=== PATIENT | female | born 1935 | race Caucasian/White ===

== ENCOUNTER 2016-11-17 22:19 | Inpatient (IN) ==
[2016-11-18] MEDS ORDERED: Ondansetron 4 MG/2 ML VIAL IVP PRN (05:00)
[2016-11-18] MEDS ORDERED: Albuterol 2.5 MG/3 ML NEBULIZER IH PRN (05:43)
[2016-11-18] MEDS ORDERED: Vancomycin 1,000 MG in D5% in Water 250 ML IVPB STA (05:43)
[2016-11-18] MEDS ORDERED: Acetaminophen 325 MG TABLET PO PRN (05:45)
[2016-11-18] MEDS ORDERED: Pantoprazole 40 MG VIAL IVP STA (05:45)
[2016-11-18] MEDS ORDERED: MOM Conc 10 ML UD.LIQ PO PRN (05:45)
[2016-11-18] MEDS ORDERED: Gabapentin 100 MG CAPSULE PO PRN (05:45)
[2016-11-18] MEDS ORDERED: Naloxone 0.4 MG/ML INJ IVP PRN (05:45)
--- NOTE | 2016-11-18 05:50 | Internal Med History&Physical ---
Date of Encounter: 11/18/16 Time of Encounter: 05:50 Assessment and Plan (1) Pneumonia Current visit: Yes Status: Acute Suspect possibility of aspiration considering history of throat surgeries. We will obtain swallowing evaluation. Place patient on vancomycin and Zosyn. Cultures pending. Qualifiers: Pneumonia type: aspiration pneumonia Aspiration pneumonia type: unspecified Lung location: unspecified part of lung Qualified Code(s): J69.0 - Pneumonitis due to inhalation of food and vomit (2) COPD exacerbation Current visit: No Status: Acute IV steroid med nebs Mucinex as started (3) Hypokalemia Current visit: Yes Status: Acute Follow-up potassium (4) Dyslipidemia Current visit: Yes Status: Acute Resume home meds Internal Medicine - H&P: HPI Chief complaint: Cough shortness of breath Admitted From: Home Plans for Post Hospital Care: Home History of present illness: Ms. Kaiser is a 80 year old female past medical history significant for dyslipidemia, thyroid surgery, multiple throat surgeries afterwards and multiple back surgeries. She was recently admitted in [facility] where she was treated for pneumonia. She was discharged on cephalosporin and Zithromax. Soon after discharge patient developed symptoms of cough and dyspnea. Today's chest x-ray showed multifocal pneumonia. Patient refused to be admitted in [facility] therefore transferred to our facility. As I saw her she seems reasonably stable and comfortable. She denies any chest pain palpitations syncope or dizziness fever chills abdominal pain nausea vomiting diarrhea dysuria urgency frequency or hematuria metaphyseal hematemesis melena or any other symptoms otherwise. Past Med Surg Social Fam HX - Past Medical History Medical history: arthritis, COPD, coronary artery disease, myocardial infarction , thyroid disease Psychiatric history: depression - Past Surgical History Surgical History: cataract, orthopedic, other, MORENITA/BSO, other - Social History Smoking Status: Never smoker Smokeless Tobacco Status: No Alcohol use: none Drug use: none - Family History Father Living Status: Mother Living Status: Internal Medicine - H&P: Meds Atorvastatin [Lipitor] 40 mg PO HS 11/14/16 [History] Gabapentin [Neurontin] 100 mg PO TID PRN 11/14/16 [History] Oxycodone HCl/Acetaminophen [Percocet 7.5-325 mg Tablet] 1 each PO Q6-8H PRN 05/01 [History] Pantoprazole Sodium [Protonix] 40 mg PO DAILY 11/14/16 [History] Quetiapine Fumarate [Seroquel] 100 mg PO HS 11/14/16 [History] Azithromycin [Zithromax] 250 mg PO DAILY #3 tablet 11/16/16 [Rx] Cefuroxime PO [Ceftin] 500 mg PO Q12HR #6 tablet 11/16/16 [Rx] Lactobacillus [Culturelle] 1 each PO BID #6 cap.sprink 11/16/16 [Rx] 3 Allergy/AdvReac Type Severity Reaction Status Date / Time codeine Allergy Hives Verified 11/23/14 11:00 All Systems PM: A 10-system review of systems was performed and is negative for pertinent findings except as documented above in the HPI. - Constitutional Constitutional: no chills, no fever(s), no night sweats - EENT Eyes: no change in vision, no discharge, no pain, no photophobia Ears: no ear discharge, no ear pain, no tinnitus Nose, mouth and throat: no dysphagia, no nasal discharge, no neck pain, no sore throat - Cardiovascular Cardiovascular ROS IM: no chest pain, no diaphoresis, no dyspnea, no lightheadedness, no palpitations, no syncope - Respiratory Respiratory: no cough, no dyspnea, no wheezing, no excessive phlegm production - Gastrointestinal Gastrointestinal: no abdominal pain, no diarrhea, no hematemesis, no hematochezia, no melena, no nausea, no vomiting - Genitourinary Genitourinary: no change in urinary stream, no dysuria, no flank pain, no hematuria - Musculoskeletal Musculoskeletal ROS IM: no numbness, no tingling - Integumentary Integumentary IM: no rash, no unusual bruising - Neurological Neurological ROS: no confusion, no convulsions, no focal weakness, no numbness, no tingling, no tremor(s) - Hematologic/Lymphatic Hematologic/Lymphatic: no easy bruising - Constitutional Vitals: Temp Pulse Resp BP Pulse Ox 98.4 F 66 16 108/67 97 11/18/16 02:56 11/18/16 02:56 11/18/16 02:56 11/18/16 02:56 11/18/16 02:56 - Head Head exam: Present: atraumatic, normocephalic - Eye Eye exam: Present: PERRL, conjuntiva pink, sclera anicteric Pupils: Present: PERRL - Neck Neck exam general surgery: Present: supple, trachea midline. Absent: lymphadenopathy - Respiratory Respiratory exam: Present: decreased breath sounds, wheezes. Absent: accessory muscle use, rales, rhonchi - Cardiovascular Cardiovascular exam: Present: RRR, +S1, +S2. Absent: diastolic murmur, gallop, rubs, systolic murmur - GI/Abdominal GI/Abdominal exam: Present: normal bowel sounds, soft, no peritoneal signs. Absent: distended, tenderness - Extremities Exam Extremities exam: Present: warm, radial pulses palpable and symmetrical. Absent : calf tenderness, cyanotic, pedal edema - Neurological Exam Neurological exam: Present: CN II-XII intact, oriented X3, no focal deficits. Absent: pronater drift, facial droop, speech deficit - Skin Skin exam: Present: dry, intact
[2016-11-18] MEDS ORDERED: Piperacillin/Tazobactam 3.375 GM in D5% in Water (Mini-Bag+) 100 ML IVPB STA (05:59)
[2016-11-18] MEDS: Vancomycin 1,250 MG in D5% in Water 250 ML IVPB SCH (06:33)
[2016-11-18] MEDS: *HR* Enoxaparin 40 MG/0.4 ML SYRINGE SQ SCH (06:33)
[2016-11-18] MEDS: 0.9 % Sodium Chloride 1,000 ML IVC SCH ×2 (06:34→20:50)
[2016-11-18] MEDS: Ipratropium/Albuterol Neb 3 ML IH SCH ×4 (07:32→23:12)
[2016-11-18] MEDS: methylPREDNISolone 125 MG/2 ML VIAL IVP SCH ×3 (09:10→23:29)
[2016-11-18] MEDS: Lactobacillus 1 EACH CAP.SPRINK PO SCH ×2 (09:11→20:41)
--- NOTE | 2016-11-18 14:02 | Internal Med Progress Note ---
Date of Encounter: 11/18/16 Time of Encounter: 10:30 - Assessment and plan (1) Multifocal pneumonia Current Visit: Yes Status: Acute Assessment and plan: Patient had been started on Invanz at home since Wednesday. Patient had been seen on 11/14/16 for cough and fever, seen again on 11/17/16 after she failed outpatient therapy initially with azithromycin and a cephalosporin. She is currently on vancomycin and Zosyn. Mild tachycardia and mild hypotension noted this morning. No lactic acidosis. Patient is perfusing well. Blood cultures ordered as well. Heart rate has trended down, blood pressure remains stable. Continue IV fluids and close monitoring. No indication of SIRS or sepsis at this time. No leukocytosis. Supplemental oxygenation as needed. Unknown causative factor at this time. Sputum culture is pending however the patient has not had a productive cough yet-Will obtain once she is able to produce sputum. EXAMINATION: CT OF THE CHEST WITHOUT CONTRAST 11/17/2016 5:22 pm HISTORY: ORDERING SYSTEM PROVIDED HISTORY: failed out pt pneumonia CT/CT chest wo con IMPRESSION: 1. Patchy consolidation within the lower lobes bilaterally, somewhat greater on the left, with small bilateral pleural effusions. Mild multifocal pneumonia with parapneumonic effusions is considered most likely. Correlate with any clinical evidence of superimposed pulmonary edema. 2. The examination is mild to moderately degraded by motion artifact. D/ / Higinio Guerrier MD / Higinio Guerrier MD Interpreting Provider: Higinio Guerrier MD (2) COPD exacerbation Current Visit: No Status: Acute Assessment and plan: Examination more consistent with multifocal pneumonia although her COPD could be playing a factor. Continue bronchodilators, steroids, and mucolytics. (3) Acute respiratory failure Current Visit: Yes Status: Acute Assessment and plan: 2L per nasal cannula continuously. It does no tappear as if she is on oxygen at home. (4) History of throat surgery Current Visit: Yes Status: Chronic Assessment and plan: Patient with history of several throat surgeries. Speech therapy on board, recommendation is for a modified barium swallow. We will continue to follow speech therapy recommendations. Patient denies any choking episodes. (5) Chronic lower back pain Current Visit: No Status: Chronic Assessment and plan: Patient denies pain at this time. Qualifiers: Back pain laterality: midline Sciatica presence: with sciatica Sciatica laterality: sciatica of left side Qualified Code(s): M54.42 - Lumbago with sciatica, left side; G89.29 - Other chronic pain - Subjective Interval history: Patient seen and examined. On examination, patient initially asleep in high Stevens's. She awakened easily to voice and stated that she was nauseated. She denied vomiting. She denied pain at this time but felt a smothering feeling in her chest. - Constitutional Vitals: Temp Pulse Resp BP Pulse Ox 98.1 F 85 15 97/63 92 11/18/16 11:17 11/18/16 11:17 11/18/16 11:17 11/18/16 11:17 11/18/16 11:17 General appearance: Present: mild distress, A&O X 3, pleasant, answers questions appropriately - Head Head exam: Present: atraumatic, normocephalic - Eye Eye exam: Present: PERRL, conjuntiva pink, sclera anicteric Pupils: Present: PERRL - Neck Neck exam general surgery: Present: supple, trachea midline. Absent: lymphadenopathy - Respiratory Respiratory exam: Present: decreased breath sounds, rhonchi (few, scattered bilateral LL). Absent: accessory muscle use, rales, respiratory distress, wheezes - Cardiovascular Cardiovascular exam: Present: RRR, +S1, +S2. Absent: diastolic murmur, gallop, rubs, systolic murmur - GI/Abdominal GI/Abdominal exam: Present: normal bowel sounds, soft, no peritoneal signs. Absent: distended, tenderness - Extremities Exam Extremities exam: Present: warm, radial pulses palpable and symmetrical. Absent : calf tenderness, cyanotic, pedal edema - Neurological Exam Neurological exam: Present: alert, CN II-XII intact, oriented X3, no focal deficits, strengths equal and symetr throughout. Absent: pronater drift, facial droop, speech deficit - Skin Skin exam: Present: dry, intact, pallor, warm Consult Discharge Plan - Plan Referrals: Hortencia Bagley, [employer] [Primary Care Provider] -
[2016-11-18] MEDS: *HR* OxyCODONE Immed Rel 5 MG TABLET PO PRN (16:34)
[2016-11-18] MEDS: *HR* OxyCODONE/APAP 7.5/325 TABLET PO PRN (20:47)
[2016-11-18] MEDS: Melatonin 3 MG TABLET PO PRN (23:29)
[2016-11-19] MEDS: Ipratropium/Albuterol Neb 3 ML IH SCH ×4 (04:01→22:59)
[2016-11-19 05:06] LABS: Basophils % 0.1 %; Hematocrit 30.6 % (35.3-44.9); Hemoglobin 9.9 g/dL (11.5-15.4); Immature Granulocytes % 1.1 % (0-4); Lymphocytes # 0.5 K/mcL (0.6-4.6); Lymphocytes % 5.9 %; Mean Corpuscular HGB Conc 32.4 g/dL (31.6-35.5); Mean Corpuscular Hemoglobin 32.2 pg (28.0-33.3); Mean Corpuscular Volume 99.7 fL (83.0-100.0); Mean Platelet Volume 10.3 fL (9.4-12.4); Monocytes # 0.2 K/mcL (0.0-1.3); Neutrophils # 7.3 K/mcL (1.6-8.9); Platelet Count 213 K/mcL (140-400); Red Blood Count 3.07 M/mcL (3.82-4.97); Red Cell Distribution Width 14.5 % (11.5-14.5); Segmented Neutrophils % 90.9 %
[2016-11-19 05:21] LABS: Alanine Aminotransferase 13 Units/L (0-55); Albumin 2.3 g/dL (3.5-5.0); Albumin/Globulin Ratio 0.8 (1.1-2.2); Alkaline Phosphatase 90 Units/L (38-126); Aspartate Amino Transferase 13 Units/L (5-34); BUN/Creatinine Ratio 14 (6-26); Blood Urea Nitrogen 15 mg/dL (7-20); Calcium 7.3 mg/dL (8.6-10.8); Carbon Dioxide 22 mEq/L (19-29); Chloride 109 mEq/L (98-109); Glucose 179 mg/dL (70-99); Osmolality,Calculated 293 (280-300); Potassium 3.8 mEq/L (3.5-4.5); Sodium 139 mEq/L (136-145); Total Protein 5.3 g/dL (6.0-8.3); eGFR For African Americans 59 (> 60); eGFR For Non-African Americans 49 (> 60)
[2016-11-19 05:27] LABS: Bilirubin,Total < 0.3 mg/dL (0.2-1.2)
[2016-11-19 05:35] LABS: Triiodothyronine (T3) Total 0.49 ng/mL (0.58-1.59)
[2016-11-19] MEDS: *HR* Enoxaparin 40 MG/0.4 ML SYRINGE SQ SCH (06:26)
[2016-11-19] MEDS: *HR* OxyCODONE/APAP 7.5/325 TABLET PO PRN ×2 (06:26→15:01)
[2016-11-19] MEDS: Vancomycin 1,250 MG in D5% in Water 250 ML IVPB SCH (06:26)
[2016-11-19] MEDS: 0.9 % Sodium Chloride 1,000 ML IVC SCH ×3 (06:36→16:12)
[2016-11-19] MEDS: Piperacillin/Tazobactam 3.375 GM in D5% in Water (Mini-Bag+) 100 ML IVPB SCH ×2 (08:11→15:07)
[2016-11-19] MEDS: methylPREDNISolone 125 MG/2 ML VIAL IVP SCH ×2 (08:11→15:02)
[2016-11-19] MEDS: Lactobacillus 1 EACH CAP.SPRINK PO SCH ×2 (08:11→21:01)
--- NOTE | 2016-11-19 15:28 | Internal Med Progress Note ---
Date of Encounter: 11/19/16 Time of Encounter: 10:30 - Assessment and plan (1) Multifocal pneumonia Current Visit: Yes Status: Acute Assessment and plan: Patient had been started on Invanz at home since Wednesday. Patient had been seen on 11/14/16 for cough and fever, seen again on 11/17/16 after she failed outpatient therapy initially with azithromycin and a cephalosporin. She is currently on vancomycin and Zosyn and clinically improving daily. Mild tachycardia has resolved; she continues with mild hypotension. No lactic acidosis. Patient is perfusing well. Blood cultures ordered as well yesterday and are pending. Continue IV fluids and close monitoring. No indication of SIRS or sepsis at this time. No leukocytosis. Supplemental oxygenation as needed- wean as tolerated- not on oxygen at home. Unknown bacteria causative factor at this time. Sputum culture is pending however the patient has not had a productive cough yet-Will obtain once she is able to produce sputum. Continue with broad spectrum coverage. EXAMINATION: CT OF THE CHEST WITHOUT CONTRAST 11/17/2016 5:22 pm HISTORY: ORDERING SYSTEM PROVIDED HISTORY: failed out pt pneumonia CT/CT chest wo con IMPRESSION: 1. Patchy consolidation within the lower lobes bilaterally, somewhat greater on the left, with small bilateral pleural effusions. Mild multifocal pneumonia with parapneumonic effusions is considered most likely. Correlate with any clinical evidence of superimposed pulmonary edema. 2. The examination is mild to moderately degraded by motion artifact. D/ / Higinio Guerrier MD / Higinio Guerrier MD Interpreting Provider: Higinio Guerrier MD (2) COPD exacerbation Current Visit: No Status: Acute Assessment and plan: Examination more consistent with multifocal pneumonia although her COPD could be playing a factor. Continue bronchodilators, steroids, and mucolytics. (3) Acute respiratory failure Current Visit: Yes Status: Acute Assessment and plan: 2L per nasal cannula continuously. She is not on oxygen at home. Anticipate weaning prior to discharge. Wean oxygen as she tolerates and as she improves clinically. (4) History of throat surgery Current Visit: Yes Status: Chronic Assessment and plan: Patient with history of several throat surgeries. Speech therapy was on board and recommended a modified barium swallow which is unremarkable. No speech therapy recommended. (5) Chronic lower back pain Current Visit: No Status: Chronic Assessment and plan: Patient denies pain at this time. Qualifiers: Back pain laterality: midline Sciatica presence: with sciatica Sciatica laterality: sciatica of left side Qualified Code(s): M54.42 - Lumbago with sciatica, left side; G89.29 - Other chronic pain - Subjective Interval history: Patient seen and examined. On examination, patient initially asleep in high Stevens's. She awakened easily to voice and stated that she feels better today. She states that the smothering sensation she had yesterday in her chest has gotten better. She also states her nausea has gotten better and states she started to eat a little bit more. She is still endorsing shortness of breath above her norm. - Constitutional Vitals: Temp Pulse Resp BP Pulse Ox 98.3 F 75 14 104/61 97 11/19/16 15:00 11/19/16 15:00 11/19/16 15:00 11/19/16 15:00 11/19/16 15:00 General appearance: Present: mild distress, A&O X 3, pleasant, answers questions appropriately - Head Head exam: Present: atraumatic, normocephalic - Eye Eye exam: Present: PERRL, conjuntiva pink, sclera anicteric Pupils: Present: PERRL - Neck Neck exam general surgery: Present: supple, trachea midline. Absent: lymphadenopathy - Respiratory Respiratory exam: Present: accessory muscle use, decreased breath sounds, respiratory distress (Mild). Absent: rales, rhonchi, wheezes - Cardiovascular Cardiovascular exam: Present: RRR, +S1, +S2. Absent: diastolic murmur, gallop, rubs, systolic murmur - GI/Abdominal GI/Abdominal exam: Present: normal bowel sounds, soft, no peritoneal signs. Absent: distended, tenderness - Extremities Exam Extremities exam: Present: warm, radial pulses palpable and symmetrical. Absent : calf tenderness, cyanotic, pedal edema - Neurological Exam Neurological exam: Present: alert, CN II-XII intact, oriented X3, no focal deficits, strengths equal and symetr throughout. Absent: pronater drift, facial droop, speech deficit - Skin Skin exam: Present: dry, intact, pallor, warm Internal Medicine: Result - Labs CBC & Chem 7: 11/19/16 03:58 11/19/16 03:58 Labs: Short CBC 11/19/16 Range/Units 03:58 WBC 8.1 (4.3-11.1) K/mcL Hgb 9.9 L D (11.5-15.4) g/dL Hct 30.6 L (35.3-44.9) % Plt Count 213 (140-400) K/mcL Neutrophils # 7.3 (1.6-8.9) K/mcL BMP 11/19/16 03:58 Sodium 139 Potassium 3.8 Chloride 109 Carbon Dioxide 22 BUN 15 Creatinine 1.09 Glucose 179 H Calcium 7.3 L D Liver Function 11/19/16 Range/Units 03:58 Total Bilirubin < 0.3 (0.2-1.2) mg/dL AST 13 (5-34) Units/L ALT 13 (0-55) Units/L Alkaline Phosphatase 90 (38-126) Units/L Albumin 2.3 L (3.5-5.0) g/dL Consult Discharge Plan - Plan Referrals: Hortencia Bagley, TAMMY [Primary Care Provider] -
[2016-11-19] MEDS: *HR* OxyCODONE Immed Rel 5 MG TABLET PO PRN (20:02)
[2016-11-19] MEDS: Melatonin 3 MG TABLET PO PRN (21:04)
[2016-11-20] MEDS: methylPREDNISolone 125 MG/2 ML VIAL IVP SCH ×4 (00:33→23:54)
[2016-11-20] MEDS: Piperacillin/Tazobactam 3.375 GM in D5% in Water (Mini-Bag+) 100 ML IVPB SCH ×4 (00:33→23:51)
[2016-11-20] MEDS: *HR* OxyCODONE/APAP 7.5/325 TABLET PO PRN ×3 (00:39→19:26)
[2016-11-20] MEDS: Ipratropium/Albuterol Neb 3 ML IH SCH ×4 (04:18→20:43)
[2016-11-20 04:47] LABS: Basophils % 0.1 %; Hemoglobin 9.9 g/dL (11.5-15.4); Immature Granulocytes % 1.4 % (0-4); Lymphocytes # 0.7 K/mcL (0.6-4.6); Lymphocytes % 5.3 %; Mean Corpuscular Hemoglobin 33.3 pg (28.0-33.3); Mean Platelet Volume 10.1 fL (9.4-12.4); Monocytes # 0.3 K/mcL (0.0-1.3); Monocytes % 2.4 %; Platelet Count 197 K/mcL (140-400); Red Blood Count 2.97 M/mcL (3.82-4.97); Red Cell Distribution Width 14.7 % (11.5-14.5); Segmented Neutrophils % 90.8 %
[2016-11-20 04:56] LABS: Neutrophils # 11.1 K/mcL (1.6-8.9)
[2016-11-20 04:59] LABS: Calcium 7.4 mg/dL (8.6-10.8); Potassium 3.8 mEq/L (3.5-4.5)
[2016-11-20] MEDS: *HR* Enoxaparin 40 MG/0.4 ML SYRINGE SQ SCH (06:09)
[2016-11-20] MEDS: Vancomycin 1,250 MG in D5% in Water 250 ML IVPB SCH (06:09)
[2016-11-20] MEDS: Lactobacillus 1 EACH CAP.SPRINK PO SCH ×2 (07:46→23:53)
[2016-11-20] MEDS: 0.9 % Sodium Chloride 1,000 ML IVC SCH (07:54)
--- NOTE | 2016-11-20 10:28 | Internal Med Progress Note ---
Date of Encounter: 11/20/16 Time of Encounter: 09:15 - Assessment and plan (1) Multifocal pneumonia Current Visit: Yes Status: Acute Assessment and plan: Patient had been started on Invanz at home since Wednesday. Patient had been seen on 11/14/16 for cough and fever, seen again on 11/17/16 after she failed outpatient therapy initially with azithromycin and a cephalosporin. She is currently on vancomycin and Zosyn and clinically improving daily. She was weaned off oxygen this am for a trial to see if she will need oxygen upon discharge. Patient stating she felt very weak, and stated that she was not ready to go home. She stated that her chest was tight, and stated that she was worried because she has been "discharged too early" in the past. We will monitor her today and see how she does without the supplemental oxygen. OT and PT consultations have been placed given that she lives alone. She states that she has a walker but never uses it. No recent falls. Regarding her chest tightness, examination mostly consistent with anxiety however she does have diffuse expiratory wheezing, will increase her DuoNeb every 4 hours. She is on high-dose steroids and appropriate antibiotic therapy. Dry, harsh hacking cough noted, we will add cough medicine. She is allergic to codeine- tessalon pearles ordered. Vital signs remain stable- trialling on room air. Blood cultures negative. Nonproductive cough so sputum culture was not obtained. Mild leukocytosis likely secondary to high-dose steroids. EXAMINATION: CT OF THE CHEST WITHOUT CONTRAST 11/17/2016 5:22 pm HISTORY: ORDERING SYSTEM PROVIDED HISTORY: failed out pt pneumonia CT/CT chest wo con IMPRESSION: 1. Patchy consolidation within the lower lobes bilaterally, somewhat greater on the left, with small bilateral pleural effusions. Mild multifocal pneumonia with parapneumonic effusions is considered most likely. Correlate with any clinical evidence of superimposed pulmonary edema. 2. The examination is mild to moderately degraded by motion artifact. D/ / Higinio Guerrier MD / Higinio Guerrier MD Interpreting Provider: Higinio Guerrier MD (2) COPD exacerbation Current Visit: No Status: Acute Assessment and plan: Examination more consistent with multifocal pneumonia although her COPD could be playing a factor. Continue bronchodilators, steroids, and mucolytics. (3) Acute respiratory failure Current Visit: Yes Status: Acute Assessment and plan: Weaned to room air this morning, will trend. She is not on oxygen at home. (4) History of throat surgery Current Visit: Yes Status: Chronic Assessment and plan: Patient with history of several throat surgeries. Speech therapy was on board and recommended a modified barium swallow which is unremarkable. No speech therapy recommended. (5) Chronic lower back pain Current Visit: No Status: Chronic Assessment and plan: Patient denies pain at this time. Qualifiers: Back pain laterality: midline Sciatica presence: with sciatica Sciatica laterality: sciatica of left side Qualified Code(s): M54.42 - Lumbago with sciatica, left side; G89.29 - Other chronic pain - Subjective Interval history: Patient seen and examined. On examination, patient alert and sitting upright in bed. Patient stating her chest feels tight today. She is also endorsing generalized weakness. She states she has a dry, hacking cough. She states she is not ready to go home today; she states that she has been discharged too early in the past. - Constitutional Vitals: Temp Pulse Resp BP Pulse Ox 98.0 F 98 16 118/65 95 11/20/16 07:31 11/20/16 07:31 11/20/16 07:31 11/20/16 07:31 11/20/16 08:13 General appearance: Present: mild distress, A&O X 3, pleasant, answers questions appropriately - Head Head exam: Present: atraumatic, normocephalic - Eye Eye exam: Present: PERRL, conjuntiva pink, sclera anicteric Pupils: Present: PERRL - Neck Neck exam general surgery: Present: supple, trachea midline. Absent: lymphadenopathy - Respiratory Respiratory exam: Present: decreased breath sounds, prolonged expiratory phase, respiratory distress (mild), wheezes. Absent: accessory muscle use, rales, rhonchi - Cardiovascular Cardiovascular exam: Present: RRR, +S1, +S2. Absent: diastolic murmur, gallop, rubs, systolic murmur - GI/Abdominal GI/Abdominal exam: Present: normal bowel sounds, soft, no peritoneal signs. Absent: distended, tenderness - Extremities Exam Extremities exam: Present: warm, radial pulses palpable and symmetrical. Absent : calf tenderness, cyanotic, pedal edema - Neurological Exam Neurological exam: Present: alert, CN II-XII intact, oriented X3, no focal deficits, strengths equal and symetr throughout. Absent: pronater drift, facial droop, speech deficit - Psychiatric Psychiatric exam: Present: anxious - Expanded Psychiatric Exam Focused psych exam: Present: restlessness - Skin Skin exam: Present: dry, intact, pallor, warm Internal Medicine: Result - Labs CBC & Chem 7: 11/20/16 04:38 11/20/16 04:38 Labs: Short CBC 11/20/16 Range/Units 04:38 WBC 12.2 H D (4.3-11.1) K/mcL Hgb 9.9 L (11.5-15.4) g/dL Hct 30.0 L (35.3-44.9) % Plt Count 197 (140-400) K/mcL Neutrophils # 11.1 H (1.6-8.9) K/mcL BMP 11/20/16 04:38 Sodium 140 Potassium 3.8 Chloride 111 H Carbon Dioxide 20 BUN 16 Creatinine 1.13 H Glucose 159 H Calcium 7.4 L Consult Discharge Plan - Plan Referrals: Hortencia Bagley CNP [Primary Care Provider] -
[2016-11-20] MEDS: Benzonatate 100 MG CAPSULE PO SCH ×3 (11:09→21:14)
[2016-11-20] MEDS ORDERED: Aminoglycoside Consult 1 EACH MC ONE (14:38)
[2016-11-21] MEDS: Ipratropium/Albuterol Neb 3 ML IH SCH ×7 (00:17→23:05)
[2016-11-21] MEDS: *HR* OxyCODONE/APAP 7.5/325 TABLET PO PRN ×3 (01:30→21:35)
[2016-11-21] MEDS: methylPREDNISolone 125 MG/2 ML VIAL IVP SCH ×3 (01:32→17:20)
[2016-11-21] MEDS: 0.9 % Sodium Chloride 1,000 ML IVC SCH (04:47)
[2016-11-21] MEDS: *HR* Enoxaparin 40 MG/0.4 ML SYRINGE SQ SCH (05:40)
[2016-11-21] MEDS: Vancomycin 1,250 MG in D5% in Water 250 ML IVPB SCH (05:41)
[2016-11-21 08:32] LABS: BUN/Creatinine Ratio 15 (6-26); Blood Urea Nitrogen 15 mg/dL (7-20); Calcium 7.6 mg/dL (8.6-10.8); Carbon Dioxide 22 mEq/L (19-29); Chloride 110 mEq/L (98-109); Glucose 149 mg/dL (70-99); Osmolality,Calculated 294 (280-300); Potassium 3.6 mEq/L (3.5-4.5); Sodium 140 mEq/L (136-145); eGFR For African Americans > 60 (> 60); eGFR For Non-African Americans 52 (> 60)
[2016-11-21] MEDS: Piperacillin/Tazobactam 3.375 GM in D5% in Water (Mini-Bag+) 100 ML IVPB SCH (08:51)
[2016-11-21] MEDS: Benzonatate 100 MG CAPSULE PO SCH ×3 (08:52→20:11)
[2016-11-21] MEDS: Lactobacillus 1 EACH CAP.SPRINK PO SCH ×2 (08:52→20:10)
[2016-11-21] MEDS ORDERED: Furosemide 20 MG/2 ML VIAL IVP ONE (11:11)
--- NOTE | 2016-11-21 11:14 | Internal Med Progress Note ---
Date of Encounter: 11/21/16 Time of Encounter: 09:30 - Assessment and plan (1) Multifocal pneumonia Current Visit: Yes Status: Acute Assessment and plan: Patient failed outpatient therapy with Azithromycin, Cefuroxime. Has been treated here with vancomycin and Zosyn. She was weaned to room air yesterday and was appropriate for discharge however she had what appeared to be consistent with a panic attack and stated she was not ready to go home and stated that she had been discharged too early in the past. Overnight, she was placed back on supplemental oxygen. On examination, patient is alert and interactive but she appears anxious and she becomes to When staff present in the room. Patient continues to complain of a smothering feeling in her chest. Other than a few coarse breath sounds, her lungs are clear to auscultation bilaterally with good aeration. IV fluids have been stopped, we will give a 1 time dose of Lasix although she is not appear overtly fluid overloaded, patient stating that her abdomen and feet feel swollen. She is also been started on low -dose Xanax. We will wean her off the oxygen again today as she tolerates. OT surmised she had no needs, PT consultation still pending. Again, the plan is for the patient to return home and will start anxiolytics today as her anxiety appears to be playing a factor on disposition. We will de-escalate her antibiotics to include pseudomonal coverage and she will be placed on Levofloxacin. Will also deescalate her steroids. Will wean her to room air again as she tolerates, and assess her response to anxiolytic therapy. EXAMINATION: CT OF THE CHEST WITHOUT CONTRAST 11/17/2016 5:22 pm HISTORY: ORDERING SYSTEM PROVIDED HISTORY: failed out pt pneumonia CT/CT chest wo con IMPRESSION: 1. Patchy consolidation within the lower lobes bilaterally, somewhat greater on the left, with small bilateral pleural effusions. Mild multifocal pneumonia with parapneumonic effusions is considered most likely. Correlate with any clinical evidence of superimposed pulmonary edema. 2. The examination is mild to moderately degraded by motion artifact. D/ / Higinio Guerrier MD / Higinio Guerrier MD Interpreting Provider: Higinio Guerrier MD (2) COPD exacerbation Current Visit: No Status: Acute Assessment and plan: Examination more consistent with multifocal pneumonia although her COPD could be playing a factor. Continue bronchodilators, steroids, and mucolytics. (3) Acute respiratory failure Current Visit: Yes Status: Acute Assessment and plan: Weaned to room air tyesterday and she did not qualify for home oxygen. Placed back on supplemental oxygen last night. Weaning again today as she tolerates. Not on oxygen at home. (4) History of throat surgery Current Visit: Yes Status: Chronic Assessment and plan: Patient with history of several throat surgeries. Speech therapy was on board and recommended a modified barium swallow which is unremarkable. No speech therapy recommended. (5) Chronic lower back pain Current Visit: No Status: Chronic Assessment and plan: Patient denies pain at this time. Qualifiers: Back pain laterality: midline Sciatica presence: with sciatica Sciatica laterality: sciatica of left side Qualified Code(s): M54.42 - Lumbago with sciatica, left side; G89.29 - Other chronic pain (6) Anxiety Current Visit: Yes Status: Acute Assessment and plan: Her anxiety appears to be playing a role in her disposition. She hyperventilates and complains of a smothering sensation in her chest. Will trial low dose Xanax. - Subjective Interval history: Patient seen and examined. On examination, patient alert and sitting upright in bed. Patient stating her chest feels "smothered" today. She is also endorsing generalized weakness. She states she has a dry, hacking cough. She again states she is not ready to go home today; she states that she has been discharged too early in the past. - Constitutional Vitals: Temp Pulse Resp BP Pulse Ox 97.8 F 86 14 156/90 94 11/21/16 07:14 11/21/16 07:14 11/21/16 07:14 11/21/16 07:14 11/21/16 07:14 General appearance: Present: mild distress (emotional), A&O X 3, pleasant, answers questions appropriately - Head Head exam: Present: atraumatic, normocephalic - Eye Eye exam: Present: PERRL, conjuntiva pink, sclera anicteric Pupils: Present: PERRL - Neck Neck exam general surgery: Present: supple, trachea midline. Absent: lymphadenopathy - Respiratory Respiratory exam: Present: respiratory distress (tachypneic 2/2 anxiety), rhonchi (few, scattered; good aeration). Absent: accessory muscle use, rales, wheezes - Cardiovascular Cardiovascular exam: Present: RRR, +S1, +S2. Absent: diastolic murmur, gallop, rubs, systolic murmur - GI/Abdominal GI/Abdominal exam: Present: normal bowel sounds, soft, no peritoneal signs. Absent: distended, tenderness - Extremities Exam Extremities exam: Present: warm, radial pulses palpable and symmetrical. Absent : calf tenderness, cyanotic, pedal edema - Neurological Exam Neurological exam: Present: alert, CN II-XII intact, oriented X3, no focal deficits, strengths equal and symetr throughout. Absent: pronater drift, facial droop, speech deficit - Psychiatric Psychiatric exam: Present: anxious - Skin Skin exam: Present: dry, intact, pallor, warm Internal Medicine: Result - Labs CBC & Chem 7: 11/20/16 04:38 11/21/16 07:40 Labs: BMP 11/21/16 07:40 Sodium 140 Potassium 3.6 Chloride 110 H Carbon Dioxide 22 BUN 15 Creatinine 1.03 Glucose 149 H Calcium 7.6 L Consult Discharge Plan - Plan Referrals: Hortencia Bagley CNP [Primary Care Provider] -
[2016-11-21] MEDS: *HR* OxyCODONE Immed Rel 5 MG TABLET PO PRN ×2 (13:03→20:09)
[2016-11-21] MEDS: ALPRAZolam 0.25 MG TABLET PO PRN (20:10)
[2016-11-22] MEDS: Ipratropium/Albuterol Neb 3 ML IH SCH ×3 (03:49→11:25)
[2016-11-22] MEDS: methylPREDNISolone 125 MG/2 ML VIAL IVP SCH (05:51)
[2016-11-22] MEDS: *HR* Enoxaparin 40 MG/0.4 ML SYRINGE SQ SCH (05:51)
[2016-11-22 07:44] LABS: BUN/Creatinine Ratio 17 (6-26); Blood Urea Nitrogen 17 mg/dL (7-20); Calcium 7.5 mg/dL (8.6-10.8); Carbon Dioxide 25 mEq/L (19-29); Chloride 108 mEq/L (98-109); Glucose 106 mg/dL (70-99); Osmolality,Calculated 294 (280-300); Potassium 3.5 mEq/L (3.5-4.5); Sodium 141 mEq/L (136-145); eGFR For African Americans > 60 (> 60); eGFR For Non-African Americans 52 (> 60)
[2016-11-22] MEDS ORDERED: levoFLOXacin 500 MG TABLET PO SCH (09:00)
[2016-11-22] MEDS: Lactobacillus 1 EACH CAP.SPRINK PO SCH (10:10)
[2016-11-22] MEDS: Benzonatate 100 MG CAPSULE PO SCH (10:10)
[2016-11-22] MEDS: ALPRAZolam 0.25 MG TABLET PO PRN (10:10)
--- NOTE | 2016-11-22 12:08 | Discharge Summary ---
Date of Encounter: 11/22/16 Time of Encounter: 09:30 - Discharge Diagnosis (1) Multifocal pneumonia Priority: Primary Status: Acute Comments: Patient failed outpatient therapy with Azithromycin, Cefuroxime. Has been treated here with vancomycin and Zosyn that was D escalated to levofloxacin prior to discharge she was also weaned to room air prior to discharge. (2) COPD exacerbation Priority: Primary Status: Resolved (3) Acute respiratory failure Priority: Primary Status: Resolved (4) History of throat surgery Priority: Secondary Status: Chronic Comments: Patient with history of several throat surgeries. Speech therapy was on board and recommended a modified barium swallow which is unremarkable. No speech therapy recommended. (5) Chronic lower back pain Priority: Secondary Status: Chronic Comments: Pain controlled well admitted Qualifiers: Back pain laterality: midline Sciatica presence: with sciatica Sciatica laterality: sciatica of left side Qualified Code(s): M54.42 - Lumbago with sciatica, left side; G89.29 - Other chronic pain (6) Anxiety Priority: Primary Status: Acute Comments: Patient had a lot of anxiety about returning home. Started on low-dose Xanax and improved greatly. Follow-up outpatient. - Discharge Medications Prescriptions: Albuterol Sulfate [Albuterol Inhaler] 2 puff IH Q4HR PRN #1 hfa.aer.ad PRN Reason: Shortness Of Breath ALPRAZolam [Xanax 0.25 MG Tablet] 0.25 mg PO BID PRN #10 tab PRN Reason: Anxiety Benzonatate [Tessalon] 100 mg PO TID PRN #30 PRN Reason: Cough levoFLOXacin [Levaquin] 500 mg PO DAILY #5 tab predniSONE [PredniSONE] 10 mg PO DAILY #41 tablet Home Medications: Atorvastatin [Lipitor] 40 mg PO HS 11/14/16 [History] Gabapentin [Neurontin] 100 mg PO TID PRN 11/14/16 [History] Oxycodone HCl/Acetaminophen [Percocet 7.5-325 mg Tablet] 1 each PO Q6-8H PRN 05/01 [History] Pantoprazole Sodium [Protonix] 40 mg PO DAILY 11/14/16 [History] Lactobacillus [Culturelle] 1 each PO BID #6 cap.sprink 11/16/16 [Rx] Levothyroxine Sodium 75 mcg PO DAILY 11/18/16 [History] Quetiapine Fumarate [Quetiapine Fumarate ER] 150 mg PO DAILY 11/18/16 [History] ALPRAZolam [Xanax 0.25 MG Tablet] 0.25 mg PO BID PRN #10 tab 11/22/16 [Rx] Albuterol Sulfate [Albuterol Inhaler] 2 puff IH Q4HR PRN #1 hfa.aer.ad 11/22/16 [Rx] Benzonatate [Tessalon] 100 mg PO TID PRN #30 11/22/16 [Rx] OxyCODONE/APAP 7.5/325 [Percocet 7.5/325 MG] 1 each PO Q6HR PRN tab 11/22/16 [ Rx] levoFLOXacin [Levaquin] 500 mg PO DAILY #5 tab 11/22/16 [Rx] predniSONE [PredniSONE] 10 mg PO DAILY #41 tablet 11/22/16 [Rx] Allergies/Adverse Reactions: 3 Allergy/AdvReac Type Severity Reaction Status Date / Time codeine Allergy Hives Verified 11/23/14 11:00 Date of admission: 11/18/16 06:04 Primary care physician: Hortencia Bagley, Consults: 11/18/16 11:57 Consult to Operations Dispatcher [CONS] Routine Reason for SW Consult: re admit 11/20/16 09:58 Consult to Occupational Therapy [CONS] Routine Comment: Evaluate, develop and implement POC Reason for Consult: lives alone. here for PNA. c/o weakness Consult to Physical Therapy [CONS] Routine Comment: Evaluate, develop and implement POC Reason for Consult: lives alone. c/o generalized weakness. Discharging clinician: Bryanna Coronado Anticipated date of discharge: 11/22/16 - Patient Status Disposition: Home, Self-Care Condition: Fair Functional capacity at discharge: independent ambulation Overall status at discharge: patient is back to baseline - Discharge Instructions Follow Up With: Hortencia Bagley CNP [Primary Care Provider] - Additional Instructions: Follow-up with primary care provider within one to 2 weeks - Diet and Activity Activity: increase activity as tolerated Diet: low fat, low cholesterol, low salt diet Hospital course: Ms. Kaiser is a 80 year old female with past medical history of COPD, CAD, hypothyroidism, prior throat surgeries and prior back surgeries. Patient was admitted for one night to [facility] where she was treated for pneumonia. She was discharged on cefuroxime and Zithromax. She states soon after discharge that she developed cough and dyspnea. She presented back to the emergency department the day after her discharge. Workup in the emergency department revealing multifocal pneumonia on imaging. Patient was started on vancomycin and Zosyn and admitted to the hospitalist service for further evaluation and management. Patient was admitted and observed over the course of 4 nights. She initially required supplemental oxygenation but she was weaned to room air prior to discharge. She was treated for both multifocal pneumonia as well as possible COPD exacerbation. On the second day of her admission, her aeration had improved greatly and she was briefly weaned to room air. The discussion was to possibly discharge on day 3 however the patient at that time immediately began to experience a "smothering" sensation in her chest. She readily stated that she was very anxious because she feels as if she was discharged too early last time and did not want that to happen again. Patient was then kept again overnight and had to be placed back on oxygen for her comfort overnight. Again the next day which would be day 3 of her admission , she was weaned to room air and the discussion was made to send her home. She again started to have a panic attack with a smothering sensation in her chest despite her lungs being clear to auscultation bilaterally and despite the fact that she was on room air. She was then started on low-dose Xanax and observed overnight. She remained on room air and the Xanax alleviated her smothering sensation and her anxiety regarding returning home. She was transitioned over to levofloxacin. Her respirations were even and easy with clear breath sounds on day of discharge. She denied shortness of breath above her norm. She was also ambulatory around the unit without any limitations. Physical therapy consultation was not warranted. Patient is independent at home. Due to her throat surgery history, his therapy was brought on board initially during admission and they performed a modified barium swallow which was unremarkable and the patient was cleared for a regular diet. Patient's renal function remained stable during this admission-no prior report for comparison, suspect chronic kidney disease stage III however do not have enough information to make that diagnosis. Renal functioning improved on day of discharge with normal creatinine. She was discharged home in stable condition with close outpatient follow-up recommended. ITS Impressions EXAMINATION: CT OF THE CHEST WITHOUT CONTRAST 11/17/2016 5:22 pm HISTORY: ORDERING SYSTEM PROVIDED HISTORY: failed out pt pneumonia CT/CT chest wo con IMPRESSION: 1. Patchy consolidation within the lower lobes bilaterally, somewhat greater on the left, with small bilateral pleural effusions. Mild multifocal pneumonia with parapneumonic effusions is considered most likely. Correlate with any clinical evidence of superimposed pulmonary edema. 2. The examination is mild to moderately degraded by motion artifact. D/ / Higinio Guerrier MD / Higinio Guerrier MD Interpreting Provider: Higinio Guerrier MD Videofluoroscopic Swallow 11/18/16 09:09 IMPRESSION: Swallowing mechanism grossly within normal limits without evidence of aspiration. Please see separate speech pathology report for full discussion of findings and recommendations. D/ / Edilberto Magana MD / Edilberto Magana MD Interpreting Provider: Edilberto Magana MD - Time Spent with Patient Total time spent providing and/or coordinating discharge services: - Constitutional Vitals: Temp Pulse Resp BP Pulse Ox 97.9 F 69 16 154/83 94 11/22/16 07:56 11/22/16 07:56 11/22/16 07:56 11/22/16 07:56 11/22/16 07:56 General appearance: Present: A&O X 3, pleasant, no acute distress, answers questions appropriately - Head Head exam: Present: atraumatic, normocephalic - Eye Eye exam: Present: PERRL, conjuntiva pink, sclera anicteric Pupils: Present: PERRL - Neck Neck exam general surgery: Present: supple, trachea midline. Absent: lymphadenopathy - Respiratory Respiratory exam: Present: CTAB (few, scattered coarse breath sounds with good aeraiton). Absent: accessory muscle use, rales, respiratory distress, rhonchi, wheezes - Cardiovascular Cardiovascular exam: Present: RRR, +S1, +S2. Absent: diastolic murmur, gallop, rubs, systolic murmur - GI/Abdominal GI/Abdominal exam: Present: normal bowel sounds, soft, no peritoneal signs. Absent: distended, tenderness - Extremities Exam Extremities exam: Present: warm, radial pulses palpable and symmetrical. Absent : calf tenderness, cyanotic, pedal edema - Neurological Exam Neurological exam: Present: alert, CN II-XII intact, normal gait, oriented X3, no focal deficits, strengths equal and symetr throughout. Absent: pronater drift, facial droop, speech deficit - Skin Skin exam: Present: dry, intact, pallor, warm
[2016-11-22 12:35] VITALS: BP 150/71
== END 2016-11-22 14:39 | disposition home or self-care (01) | DRG 190 ==
LOC: 3BNU
PROVIDERS: ADMIT Nurse Practitioner Family; ATTEND Nurse Practitioner Family